=== PATIENT | male | born 1950 | race Caucasian/White ===

== ENCOUNTER 2018-12-09 02:22 | Inpatient (IN) | payer MEDICARE, MEDICAID ==
[2018-12-09] VITALS (8 sets, daily range): BP systolic 11–128; BP diastolic 72–92
[~2018-12-09] VITALS: Ht 172.7 cm; Wt 118.2 kg
[~2018-12-09 02:22] MED LIST: ASPI-1009 PO; CLOP75TA35 PO; FLO0.4C PO; FURO40TA4 PO; LISI-222 PO; NORCO10T PO; PRED20TA PO
[2018-12-09 03:31] LABS: BASOPHILS # (AUTO) 0.1 X10'3 (0-0.2); BASOPHILS % (AUTO) 0.4 % (0-1); EOSINOPHILS # (AUTO) 0.2 X10'3 (0-0.9); EOSINOPHILS % (AUTO) 1.4 % (0-6); HEMATOCRIT 28.4 % (42.0-52.0); HEMOGLOBIN 9.1 g/dl (14.0-17.9); LYMPHOCYTES # (AUTO) 0.8 X10'3 (1.1-4.8); LYMPHOCYTES % (AUTO) 5.8 % (21-51); MEAN CORPUSCULAR HEMOGLOBIN 26.3 PG (27.0-31.0); MEAN CORPUSCULAR HGB CONC 32.1 g/dL (33.0-36.5); MEAN CORPUSCULAR VOLUME 81.9 FL (78-98); MEAN PLATELET VOLUME 7.3 FL (7.4-10.4); MONOCYTES # (AUTO) 1.3 X10'3 (0-0.9); MONOCYTES % (AUTO) 9.9 % (2-12); NEUTROPHILS % (AUTO) 82.5 % (42-75); PLATELET COUNT 286 X10'3 (140-440); RED BLOOD COUNT 3.46 X10'6 (4.70-6.10); RED CELL DISTRIBUTION WIDTH 20.4 % (11.5-14.5); WHITE BLOOD COUNT 13.3 X10'3 (4.5-11.0)
[2018-12-09 03:52] LABS: ALANINE AMINOTRANSFERASE 28 U/L (12-78); ALBUMIN 2.9 G/DL (3.4-5.0); ALBUMIN/GLOBULIN RATIO 0.6 (1.1-1.5); ALKALINE PHOSPHATASE 89 IU/L (46-116); ANION GAP 9 (8-16); ASPARTATE AMINO TRANSFERASE 24 U/L (10-37); BILIRUBIN,TOTAL 0.6 MG/DL (0.1-1.0); BLOOD UREA NITROGEN 95 MG/DL (7-18); BUN/CREATININE RATIO 37.8 (5.4-32.0); CALCIUM 9.3 MG/DL (8.5-10.1); CHLORIDE 96 MMOL/L (99-107); CREATININE 2.51 MG/DL (0.60-1.10); GLUCOSE 132 MG/DL (70-104); POTASSIUM 3.7 MMOL/L (3.5-5.1); SODIUM 138 MMOL/L (135-145); TOTAL CARBON DIOXIDE 32.6 MMOL/L (24-32); TOTAL PROTEIN 7.6 G/DL (6.4-8.2); eGFR 26 ML/MIN
[2018-12-09] MEDS ORDERED: furosemide 10 MG/1 ML 10ml inj IV ONE (04:05)
[2018-12-09] MEDS ORDERED: ALLO100T PO (04:08)
[2018-12-09] MEDS ORDERED: LORA-269 PO (04:14)
[2018-12-09] MEDS ORDERED: CARV25TA PO (04:17)
[2018-12-09] MEDS ORDERED: ROFL500T7 PO (04:18)
[2018-12-09] MEDS ORDERED: DOXA1TAB2 PO (04:19)
[2018-12-09] MEDS ORDERED: FERR325T28 PO (04:20)
[2018-12-09] MEDS ORDERED: FURO-149 PO (04:22)
[2018-12-09] MEDS ORDERED: LOSA25TA96 PO (04:23)
[2018-12-09] MEDS ORDERED: NITR0.4T51 SL (04:26)
[2018-12-09] MEDS ORDERED: HYDR-4353 PO (04:28)
[2018-12-09] MEDS ORDERED: RIVA15TA PO (04:30)
[2018-12-09] MEDS ORDERED: SERT100T PO (04:31)
[2018-12-09] MEDS ORDERED: UMEC62.5 INH (04:37)
[2018-12-09] MEDS ORDERED: ALBU8.5H8 INH (04:40)
[2018-12-09 05:07] LABS: TOTAL CELLS COUNTED 100
[2018-12-09 05:08] LABS: ANISOCYTOSIS 3+; LARGE PLATELETS FEW; PLATELET ESTIMATE NORMAL
[2018-12-09 05:10] LABS: ELLIPTOCYTES FEW; POLYCHROMASIA FEW; TEAR DROP CELLS FEW
[2018-12-09] MEDS ORDERED: LORazepam 0.5 MG tablet PO PRN (05:10)
--- NOTE | 2018-12-09 05:56 | NUR ---
PT PRESENTS W/ SUICIDAL IDEATION, BUT BECAUSE OF CONCURRENT CHF EXACERBATION, PT WILL REMAIN ON CARDIAC, AND O2 MONITOR.
[2018-12-09 06:00] LABS: CLARITY,URINE CLEAR (Clear); COLOR,URINE YELLOW (Yellow); GLUCOSE, URINE NEGATIVE (Neg); KETONES,URINE NEGATIVE (Neg); LEUKOCYTE ESTERASE ,URINE NEGATIVE (Neg); NITRITES, URINE NEGATIVE (Neg); OCCULT BLOOD,URINE NEGATIVE (Neg); PH,URINE 5.5 (4.8-8.0); PROTEIN,URINE NEGATIVE (Neg); UROBILINOGEN,URINE 0.2 E.U/dL (0.2-1.0)
[2018-12-09 06:02] LABS: UA COLLECTION TYPE NON-SPECIFIED
--- NOTE | 2018-12-09 06:30 | NUR ---
Care assumed, pt currently sitting on edge of recliner tripoding.
--- NOTE | 2018-12-09 06:50 | NUR ---
Pt placed on library monitor and found with heart rate in 130s-150s. Dr. Hays informed of pt condition. Pt EKG being performed. Received report that pt was on 1798, no noted order of 1798 found. Spoke with pt regarding SI, pt reports not being able to sleep for x2 days, shortness fo breath, and SI due to symptoms. Pt denies active suicidal plan.
[2018-12-09] MEDS ORDERED: diltiazem-D5W 125mg/125ml 125 ML IV ONE (06:56)
[2018-12-09] MEDS ORDERED: diltiazem 5mg/ml 5ml inj. IV ONE (07:00)
--- NOTE | 2018-12-09 07:20 | NUR ---
Pt received cardizem bolus, cardizem gtt is running. SBP improved from 100 SBP to 113 SBP. Will continue to monitor.
[2018-12-09] MEDS ORDERED: amiodarone 150mg/dext, iso-os 100 ML IV ONE (08:15)
[2018-12-09] MEDS ORDERED: acetaminophen 325mg tablet PO PRN (08:25)
[2018-12-09] MEDS ORDERED: mag hydrox/Alum hydrox/simeth 30ml oral suspension PO PRN (08:25)
[2018-12-09] MEDS ORDERED: bisacodyl 10mg suppository rectal RC PRN (08:25)
[2018-12-09] MEDS: amiodarone/D5 360MG/200ML BAG 200 ML IV SCH ×2 (08:43→13:37)
[2018-12-09] MEDS ORDERED: morphine 4 MG/ML inj SYRINge IV ONE (08:55)
--- NOTE | 2018-12-09 09:08 | NUR ---
PAGED DANIELA:GOOD MORNING, HAVE NEW ADM COMING TO [id number]. MALACHI [phone], TY.
--- NOTE | 2018-12-09 09:11 | NUR ---
Amio gtt infusing at 33mL/hr. Pt. SOB w/ sp02 97%, HR 127, bp 106/68, rr 34. Pt anxious but cooperative, aox4. Morphine given. Assumed care from DANIEL Tovar.
[2018-12-09] MEDS: metoprolol tartrate 1mg/ml inj IV SCH ×2 (09:37→17:20)
--- NOTE | 2018-12-09 09:55 | NUR ---
RECEIVED TELEPHONE REPORT FROM DANIEL HAM.
--- NOTE | 2018-12-09 10:15 | NUR ---
RECEIVED PT VIA [employer]. VS STABLE. SOB WITH ANY ACTIVITY. SLIGHT SOB AT REST.
--- NOTE | 2018-12-09 11:34 | NUR ---
PAGER ID: [phone] MESSAGE: DR. NEWTON, 8396Y/ITALIA, C/O PAIN 5/10 EVERYWHERE, LEFT SHOULDER, BACK, ABD, RIBS FROM COUGHING.. NOTHING IS ORDERED FOR PAIN. MALACHI [id number]. TY
[2018-12-09] MEDS: ondansetron/PF 4mg/2ml inj IV PRN (13:23)
--- NOTE | 2018-12-09 13:56 | NUR ---
PAGER ID: [phone] MESSAGE: DR. NEWTON, 8651Z/ITALIA,STILL C/O PAIN 5/10 EVERYWHERE, LEFT SHOULDER, BACK, ABD, RIBS FROM COUGHING.. NOTHING IS ORDERED FOR PAIN. MALACHI [id number]. TY
[2018-12-09] MEDS ORDERED: nitroGLYCERIN 0.4mg SUBLingual tab SL PRN (14:30)
[2018-12-09] MEDS ORDERED: ALBUTEROL SULFATE 90 MCG INH SCH (14:30)
[2018-12-09] MEDS ORDERED: albuterol 2.5 MG/3 ML nebule NEB PRN (14:35)
--- NOTE | 2018-12-09 15:34 | NUR ---
PAGED RT: [phone],NEED PRN RESP TREATMENT PLEASE FOR INCREASE SOB.MALACHI [phone]. TY
[2018-12-09] MEDS: HYDROcodone/acetaminophen 10/325mg tab PO PRN ×2 (15:45→22:54)
--- NOTE | 2018-12-09 15:49 | NUR ---
PAGED RT:[id number],NEED PRN RESP TREATMENT PLEASE FOR INCREASE SOB.MALACHI [phone]. TY
--- NOTE | 2018-12-09 16:07 | NUR ---
PAGED RT:NEW RESP ORDERS PER DR. NEWTON. MALACHI [phone].
--- NOTE | 2018-12-09 16:12 | NUR ---
PAGED DANIELA:ESTHER RING,STILL GOING TO DANIELA [phone]? MALACHI [phone]. TY
[2018-12-09] MEDS ORDERED: FLUT1AER (17:16)
[2018-12-09] MEDS ORDERED: APRE30TA2 PO (17:16)
[2018-12-09] MEDS ORDERED: ACIT25CA2 PO (17:16)
[2018-12-09] MEDS ORDERED: POTA10TA36 PO (17:16)
--- NOTE | 2018-12-09 18:10 | NUR ---
Student documentation: I have reviewed and agree with all interventions, assessments performed and documented by RICHELLE.
--- NOTE | 2018-12-09 18:30 | NUR ---
Patient in room PCU 3023. I have received report from Jordi SANCHEZ and had the opportunity to ask questions and assume patient care.
--- NOTE | 2018-12-09 18:40 | NUR ---
Problems reprioritized. Patient report given, questions answered & plan of care reviewed with DANIEL BEJARANO.
[2018-12-09] MEDS ORDERED: non-formulary drug (Carvedilol (Coreg) 1 TAB) PO SCH (20:00)
[2018-12-09] MEDS: docusate sod 100mg capsule PO SCH (20:00)
[2018-12-09] MEDS: ipratropium/albuterol 3ml nebule NEB SCH ×2 (20:05→23:39)
[2018-12-09] MEDS: LORazepam 0.5 MG tablet PO SCH (20:39)
[2018-12-09] MEDS: furosemide 40mg/4ml inj IV SCH (20:39)
[2018-12-09] MEDS: ferrous sulfate 325mg tablet PO SCH (20:40)
[2018-12-09] MEDS: carVEDilol 12.5mg tablet PO SCH (20:40)
[2018-12-09] MEDS: Melatonin 3mg tablet PO SCH (20:41)
[2018-12-10] VITALS (12 sets, daily range): BP systolic 110–130; BP diastolic 74–104
[2018-12-10] MEDS: amiodarone/D5 360MG/200ML BAG 200 ML IV SCH ×4 (00:22→14:34)
--- NOTE | 2018-12-10 03:21 | NUR ---
pt stated that he lives alone in a hotel although he came here from [facility]. He said the hotel is closing in 30 days and he has no one to help get his things if he is still in hospital/rehab
[2018-12-10] MEDS: ipratropium/albuterol 3ml nebule NEB SCH ×6 (03:40→23:54)
[2018-12-10 05:11] LABS: BASOPHILS # (AUTO) 0.1 X10'3 (0-0.2); BASOPHILS % (AUTO) 0.7 % (0-1); EOSINOPHILS # (AUTO) 0.2 X10'3 (0-0.9); EOSINOPHILS % (AUTO) 1.4 % (0-6); HEMATOCRIT 27.5 % (42.0-52.0); HEMOGLOBIN 8.8 g/dl (14.0-17.9); LYMPHOCYTES % (AUTO) 8.3 % (21-51); MEAN CORPUSCULAR HEMOGLOBIN 26.7 PG (27.0-31.0); MEAN CORPUSCULAR HGB CONC 32.1 g/dL (33.0-36.5); MEAN CORPUSCULAR VOLUME 83.2 FL (78-98); MEAN PLATELET VOLUME 7.1 FL (7.4-10.4); MONOCYTES % (AUTO) 8.2 % (2-12); NEUTROPHILS # (AUTO) 9.5 X10'3 (1.8-7.7); NEUTROPHILS % (AUTO) 81.4 % (42-75); PLATELET COUNT 281 X10'3 (140-440); RED BLOOD COUNT 3.31 X10'6 (4.70-6.10); RED CELL DISTRIBUTION WIDTH 20.2 % (11.5-14.5); WHITE BLOOD COUNT 11.7 X10'3 (4.5-11.0)
[2018-12-10 05:14] LABS: ALBUMIN 2.8 G/DL (3.4-5.0); ANION GAP 8 (8-16); BLOOD UREA NITROGEN 99 MG/DL (7-18); CHLORIDE 95 MMOL/L (99-107); GLUCOSE 121 MG/DL (70-104); POTASSIUM 3.8 MMOL/L (3.5-5.1); SODIUM 137 MMOL/L (135-145); TOTAL CARBON DIOXIDE 33.7 MMOL/L (24-32); eGFR 21 ML/MIN
--- NOTE | 2018-12-10 06:28 | NUR ---
Problems reprioritized. Patient report given, questions answered & plan of care reviewed with Jordi RN.
--- NOTE | 2018-12-10 06:52 | NUR ---
Patient in room PCU 3023. I have received report from DANIEL BEJARANO and had the opportunity to ask questions and assume patient care.
[2018-12-10 07:00] LABS: ANISOCYTOSIS 3+; PLATELET ESTIMATE NORMAL; POLYCHROMASIA 1+; TOTAL CELLS COUNTED 100
[2018-12-10] MEDS ORDERED: ROFLUMILAST 250 MCG PO SCH (08:00)
[2018-12-10] MEDS ORDERED: non-formulary drug (Sertraline Hcl (Zoloft) 1 TAB) PO SCH (08:00)
[2018-12-10] MEDS ORDERED: non-formulary drug (Doxazosin Mesylate 1 TAB) PO SCH (08:00)
[2018-12-10] MEDS: furosemide 40mg/4ml inj IV SCH ×2 (08:06→19:38)
[2018-12-10] MEDS: doxazosin mesylate 2mg tablet PO SCH (08:07)
[2018-12-10] MEDS: LORazepam 0.5 MG tablet PO SCH ×2 (08:07→19:39)
[2018-12-10] MEDS: carVEDilol 12.5mg tablet PO SCH ×2 (08:08→19:40)
[2018-12-10] MEDS: roflumilast 500mcg tablet PO SCH (08:08)
[2018-12-10] MEDS: docusate sod 100mg capsule PO SCH ×2 (08:08→19:39)
[2018-12-10] MEDS: rivaroxaban 15mg tablet PO SCH (08:09)
[2018-12-10] MEDS: ferrous sulfate 325mg tablet PO SCH ×2 (08:09→19:39)
[2018-12-10] MEDS: allopurinol 100mg tablet PO SCH (08:10)
[2018-12-10] MEDS: sertraline 50mg tablet PO SCH (08:10)
--- NOTE | 2018-12-10 08:55 | NUR ---
C/O "SEVERE ANXIETY"SOB, HR 160. SAT 97% ON 2L/NC. RR28. BP 129/93. THEN HR DOWN TO 130. VARIABLE. DR. NEWTON NOTIFIED OF ANXIETY, SOB, RAPID HR. NORCO ADM FOR C/O 03/05 PAIN.
[2018-12-10] MEDS: HYDROcodone/acetaminophen 10/325mg tab PO PRN ×2 (09:09→20:40)
--- NOTE | 2018-12-10 09:15 | NUR ---
5 BEAT RUN VT. ASX. VS STABLE. DR. NEWTON NOTIFIED.
--- NOTE | 2018-12-10 16:13 | NUR ---
CALL TO ROBINSON SAAVEDRA. STATES "AMIODARONE GTT AND CEFEPIME ARE COMPATIBLE AT THE Y SITE".
[2018-12-10] MEDS: cefepime 1GM/NS ADD-VANTAGE 100 ML IV SCH ×2 (16:44→23:32)
[2018-12-10 17:51] LABS: CLARITY,URINE CLEAR (Clear); COLOR,URINE YELLOW (Yellow); GLUCOSE, URINE NEGATIVE (Neg); KETONES,URINE NEGATIVE (Neg); LEUKOCYTE ESTERASE ,URINE NEGATIVE (Neg); NITRITES, URINE NEGATIVE (Neg); OCCULT BLOOD,URINE NEGATIVE (Neg); PROTEIN,URINE NEGATIVE (Neg); UROBILINOGEN,URINE 0.2 E.U/dL (0.2-1.0)
[2018-12-10 17:53] LABS: TOTAL PROTEIN,URINE RANDOM 15.6 MG/DL
[2018-12-10 17:55] LABS: UA COLLECTION TYPE VOIDED
--- NOTE | 2018-12-10 18:16 | NUR ---
Problems reprioritized. Patient report given, questions answered & plan of care reviewed with abi mills.
[2018-12-10 18:19] LABS: UA EOSINOPHILS NO EOS /HPF
--- NOTE | 2018-12-10 18:30 | NUR ---
Patient in room PCU 3023. I have received report from orquidea alex and had the opportunity to ask questions and assume patient care.
[2018-12-10] MEDS: Melatonin 3mg tablet PO SCH (19:39)
--- NOTE | 2018-12-10 21:15 | NUR ---
pt has been complaining of intermittent shakiness. asked him to let RN know the next time it happened so RN could check his blood glucose. just before bed bath, he complained of shaking again. blood glucose 145. bed bath given, linens changed, dressing on right buttock. he complains of pain but there is nothing open. shampoo cap done. pt thankful and appreciative. slight redness in fold under breasts and pannus. interdry applied.
[2018-12-11] VITALS (11 sets, daily range): BP systolic 81–141; BP diastolic 63–127
[2018-12-11] MEDS: amiodarone/D5 360MG/200ML BAG 200 ML IV SCH ×4 (00:57→08:46)
[2018-12-11] MEDS: ondansetron/PF 4mg/2ml inj IV PRN (03:30)
--- NOTE | 2018-12-11 03:39 | NUR ---
pt woke with sudden abdominal pain and nausea. zofran given. had some dry heaves/coughing and spit up once but it was phlegm not vomit. rubbed pts back for a while until he said he would be alright.
[2018-12-11] MEDS: ipratropium/albuterol 3ml nebule NEB SCH ×6 (03:44→23:40)
[2018-12-11 05:51] LABS: BASOPHILS # (AUTO) 0.1 X10'3 (0-0.2); BASOPHILS % (AUTO) 0.5 % (0-1); EOSINOPHILS # (AUTO) 0.2 X10'3 (0-0.9); EOSINOPHILS % (AUTO) 1.9 % (0-6); HEMATOCRIT 27.3 % (42.0-52.0); HEMOGLOBIN 8.9 g/dl (14.0-17.9); LYMPHOCYTES # (AUTO) 0.9 X10'3 (1.1-4.8); LYMPHOCYTES % (AUTO) 7.5 % (21-51); MEAN CORPUSCULAR HEMOGLOBIN 26.8 PG (27.0-31.0); MEAN CORPUSCULAR HGB CONC 32.7 g/dL (33.0-36.5); MEAN PLATELET VOLUME 7.3 FL (7.4-10.4); MONOCYTES # (AUTO) 0.9 X10'3 (0-0.9); MONOCYTES % (AUTO) 7.5 % (2-12); NEUTROPHILS # (AUTO) 9.7 X10'3 (1.8-7.7); NEUTROPHILS % (AUTO) 82.6 % (42-75); PLATELET COUNT 270 X10'3 (140-440); RED BLOOD COUNT 3.33 X10'6 (4.70-6.10); WHITE BLOOD COUNT 11.7 X10'3 (4.5-11.0)
[2018-12-11 06:21] LABS: ALBUMIN 2.9 G/DL (3.4-5.0); ANION GAP 13 (8-16); BLOOD UREA NITROGEN 94 MG/DL (7-18); BUN/CREATININE RATIO 30.8 (5.4-32.0); CALCIUM 9.5 MG/DL (8.5-10.1); CHLORIDE 94 MMOL/L (99-107); CREATININE 3.05 MG/DL (0.60-1.10); GLUCOSE 136 MG/DL (70-104); POTASSIUM 3.7 MMOL/L (3.5-5.1); SODIUM 136 MMOL/L (135-145); TOTAL CARBON DIOXIDE 29.2 MMOL/L (24-32); eGFR 21 ML/MIN
--- NOTE | 2018-12-11 06:32 | NUR ---
Problems reprioritized. Patient report given, questions answered & plan of care reviewed with Lavonne SANCHEZ.
--- NOTE | 2018-12-11 06:47 | NUR ---
Patient in room PCU 3023. I have received report from DANIEL Ruiz and had the opportunity to ask questions and assume patient care.
[2018-12-11 07:11] LABS: ANISOCYTOSIS 3+; LARGE PLATELETS FEW; MICROCYTOSIS 1+; PLATELET ESTIMATE NORMAL
[2018-12-11 07:12] LABS: POLYCHROMASIA FEW
[2018-12-11] MEDS: roflumilast 500mcg tablet PO SCH (08:13)
[2018-12-11] MEDS: furosemide 40mg/4ml inj IV SCH ×2 (08:14→19:37)
[2018-12-11] MEDS: cefepime 1GM/NS ADD-VANTAGE 100 ML IV SCH (08:14)
[2018-12-11] MEDS: LORazepam 0.5 MG tablet PO SCH (08:15)
[2018-12-11] MEDS: rivaroxaban 15mg tablet PO SCH (08:15)
[2018-12-11] MEDS: allopurinol 100mg tablet PO SCH (08:15)
[2018-12-11] MEDS: ferrous sulfate 325mg tablet PO SCH ×2 (08:15→19:37)
[2018-12-11] MEDS: docusate sod 100mg capsule PO SCH ×2 (08:16→19:37)
[2018-12-11] MEDS: sertraline 50mg tablet PO SCH (08:16)
[2018-12-11] MEDS: carVEDilol 12.5mg tablet PO SCH ×2 (08:16→19:38)
[2018-12-11] MEDS: doxazosin mesylate 2mg tablet PO SCH (08:20)
[2018-12-11] MEDS: HYDROcodone/acetaminophen 10/325mg tab PO PRN (09:17)
--- NOTE | 2018-12-11 10:33 | NUR ---
Paged Dr. Jones re pt's anxiety. PAGER ID: [phone] MESSAGE: Re pt Juan Rabago in 6699Y. Can we get PRN Ativan? He's quite anxious. Also order for flutter valve? Thanks! Lavonne SANCHEZ [phone]
[2018-12-11] MEDS: LORazepam 2 mg/ml vial IV PRN (11:12)
[2018-12-11] MEDS ORDERED: ipratropium 0.5 MG/2.5ML nebule IH PRN (14:00)
[2018-12-11] MEDS ORDERED: temazepam 15mg capsule PO PRN (14:00)
[2018-12-11] MEDS: amiodarone 200mg tablet PO SCH ×2 (15:02→19:37)
[2018-12-11] MEDS: clonazePAM 0.5mg tablet PO SCH ×2 (15:02→19:37)
[2018-12-11] MEDS: levoFLOXACIN-Levaquin 750MG/D5 150 ML IV SCH (15:02)
--- NOTE | 2018-12-11 18:27 | NUR ---
Problems reprioritized. Patient report given, questions answered & plan of care reviewed with DANIEL Yun.
--- NOTE | 2018-12-11 18:30 | NUR ---
Patient in room PCU 3021. I have received report from Estelle SANCHEZ and had the opportunity to ask questions and assume patient care.
[2018-12-11] MEDS: lactobacillus rhamnosus 10,000 MMU CELLS/CAPSULE PO SCH (19:38)
[2018-12-11] MEDS: Melatonin 3mg tablet PO SCH (21:52)
[2018-12-12] VITALS (18 sets, daily range): BP systolic 89–141; BP diastolic 51–102
[2018-12-12] MEDS: ipratropium/albuterol 3ml nebule NEB SCH ×6 (03:47→23:14)
[2018-12-12] MEDS: LORazepam 2 mg/ml vial IV PRN (04:18)
[2018-12-12 05:36] LABS: ALBUMIN 2.8 G/DL (3.4-5.0); ANION GAP 7 (8-16); BLOOD UREA NITROGEN 94 MG/DL (7-18); BUN/CREATININE RATIO 29.9 (5.4-32.0); CALCIUM 8.9 MG/DL (8.5-10.1); CHLORIDE 94 MMOL/L (99-107); CREATININE 3.14 MG/DL (0.60-1.10); GLUCOSE 132 MG/DL (70-104); POTASSIUM 3.6 MMOL/L (3.5-5.1); SODIUM 133 MMOL/L (135-145); TOTAL CARBON DIOXIDE 31.6 MMOL/L (24-32); eGFR 20 ML/MIN
[2018-12-12 05:44] LABS: BASOPHILS % (AUTO) 0.4 % (0-1); EOSINOPHILS # (AUTO) 0.1 X10'3 (0-0.9); EOSINOPHILS % (AUTO) 1.1 % (0-6); HEMATOCRIT 26.7 % (42.0-52.0); HEMOGLOBIN 8.6 g/dl (14.0-17.9); LYMPHOCYTES # (AUTO) 0.9 X10'3 (1.1-4.8); LYMPHOCYTES % (AUTO) 7.2 % (21-51); MEAN CORPUSCULAR HEMOGLOBIN 26.7 PG (27.0-31.0); MEAN CORPUSCULAR HGB CONC 32.4 g/dL (33.0-36.5); MEAN CORPUSCULAR VOLUME 82.5 FL (78-98); MEAN PLATELET VOLUME 7.6 FL (7.4-10.4); MONOCYTES # (AUTO) 0.9 X10'3 (0-0.9); MONOCYTES % (AUTO) 7.1 % (2-12); NEUTROPHILS # (AUTO) 10.2 X10'3 (1.8-7.7); NEUTROPHILS % (AUTO) 84.2 % (42-75); PLATELET COUNT 260 X10'3 (140-440); RED BLOOD COUNT 3.24 X10'6 (4.70-6.10); RED CELL DISTRIBUTION WIDTH 20.9 % (11.5-14.5); WHITE BLOOD COUNT 12.1 X10'3 (4.5-11.0)
[2018-12-12 06:27] LABS: ANISOCYTOSIS 3+; HYPOCHROMASIA 1+; PLATELET ESTIMATE NORMAL
--- NOTE | 2018-12-12 06:34 | NUR ---
Problems reprioritized. Patient report given, questions answered & plan of care reviewed with Tyrel SANCHEZ.
--- NOTE | 2018-12-12 07:05 | NUR ---
Patient in room PCU 3021. I have received report from DANIEL Alston and had the opportunity to ask questions and assume patient care.
[2018-12-12] MEDS: carVEDilol 12.5mg tablet PO SCH ×2 (07:59→21:31)
[2018-12-12] MEDS: sertraline 50mg tablet PO SCH (07:59)
[2018-12-12] MEDS: amiodarone 200mg tablet PO SCH ×2 (07:59→21:26)
[2018-12-12] MEDS: doxazosin mesylate 2mg tablet PO SCH (08:00)
[2018-12-12] MEDS: lactobacillus rhamnosus 10,000 MMU CELLS/CAPSULE PO SCH ×2 (08:00→21:26)
[2018-12-12] MEDS: docusate sod 100mg capsule PO SCH ×2 (08:01→21:27)
[2018-12-12] MEDS: clonazePAM 0.5mg tablet PO SCH ×2 (08:01→21:26)
[2018-12-12] MEDS: rivaroxaban 15mg tablet PO SCH (08:01)
[2018-12-12] MEDS: allopurinol 100mg tablet PO SCH (08:02)
[2018-12-12] MEDS: ferrous sulfate 325mg tablet PO SCH ×2 (08:02→21:27)
[2018-12-12] MEDS: levoFLOXACIN-Levaquin 750MG/D5 150 ML IV SCH (08:06)
[2018-12-12] MEDS: furosemide 40mg/4ml inj IV SCH ×2 (08:18→21:29)
[2018-12-12] MEDS: ondansetron/PF 4mg/2ml inj IV PRN (11:45)
[2018-12-12] MEDS: DOBUTamine-DoBUTrex 500mg/D5W 250 ML IV SCH (11:54)
[2018-12-12] MEDS: roflumilast 500mcg tablet PO SCH (12:30)
--- NOTE | 2018-12-12 15:36 | NUR ---
on 1530 put 16fr reyes cath in, wit minimal resistance, clear yellow urine return, 100cc out at this time.
--- NOTE | 2018-12-12 18:10 | NUR ---
Patient in room PCU 3021. I have received report from Tyrel SANCHEZ and had the opportunity to ask questions and assume patient care.
--- NOTE | 2018-12-12 18:16 | NUR ---
Problems reprioritized. Patient report given, questions answered & plan of care reviewed with DANIEL praks.
[2018-12-12] MEDS: Melatonin 3mg tablet PO SCH (21:27)
--- NOTE | 2018-12-12 22:59 | NUR ---
PAGER ID: [phone] MESSAGE: [phone] Juan Rabago Patient is very anxious and crying, heart rate up to 120s. He has Ativan 0.5mg IV ordered, not effective. Can we increase dose please? Thanks, pt is also 118kg. [phone]
[2018-12-12] MEDS ORDERED: LORazepam 2 mg/ml vial IV PRN (23:20)
[2018-12-12] MEDS ORDERED: LORazepam 1 MG tablet PO PRN (23:20)
[2018-12-13] VITALS (12 sets, daily range): BP systolic 91–120; BP diastolic 45–107
[2018-12-13] MEDS: DOBUTamine-DoBUTrex 500mg/D5W 250 ML IV SCH ×2 (01:26→14:08)
[2018-12-13] MEDS: ipratropium/albuterol 3ml nebule NEB SCH ×6 (03:26→22:59)
--- NOTE | 2018-12-13 05:30 | NUR ---
Patient was sitting on side of bed, with staff member in room. Patient had urgency to void and impulsively tried to stand up, over estimating ability. Was assisted to floor. MD notified, VSS, minor skin tear to right knee. Patient moved to room 3016A with sitter
--- NOTE | 2018-12-13 05:57 | NUR ---
PAGER ID: [phone] MESSAGE: [phone] Juan Rabago Patient had witness fall, minor skin tear to knee. Vital signs stable. Court SANCHEZ
[2018-12-13 06:12] LABS: BASOPHILS % (AUTO) 0.3 % (0-1); EOSINOPHILS # (AUTO) 0.1 X10'3 (0-0.9); HEMATOCRIT 26.5 % (42.0-52.0); HEMOGLOBIN 8.5 g/dl (14.0-17.9); LYMPHOCYTES # (AUTO) 0.6 X10'3 (1.1-4.8); LYMPHOCYTES % (AUTO) 5.1 % (21-51); MEAN CORPUSCULAR HEMOGLOBIN 26.5 PG (27.0-31.0); MEAN CORPUSCULAR HGB CONC 32.3 g/dL (33.0-36.5); MEAN CORPUSCULAR VOLUME 82.1 FL (78-98); MEAN PLATELET VOLUME 7.5 FL (7.4-10.4); MONOCYTES # (AUTO) 0.8 X10'3 (0-0.9); MONOCYTES % (AUTO) 6.5 % (2-12); NEUTROPHILS # (AUTO) 11.1 X10'3 (1.8-7.7); NEUTROPHILS % (AUTO) 87.1 % (42-75); PLATELET COUNT 271 X10'3 (140-440); RED BLOOD COUNT 3.22 X10'6 (4.70-6.10); RED CELL DISTRIBUTION WIDTH 21.3 % (11.5-14.5); WHITE BLOOD COUNT 12.8 X10'3 (4.5-11.0)
--- NOTE | 2018-12-13 06:15 | NUR ---
Problems reprioritized. Patient report given, questions answered & plan of care reviewed with Tyrel SANCHEZ.
--- NOTE | 2018-12-13 06:20 | NUR ---
Patient in room PCU 3021. I have received report from DANIEL Alston and had the opportunity to ask questions and assume patient care.
[2018-12-13 06:27] LABS: ALBUMIN 2.8 G/DL (3.4-5.0); ANION GAP 8 (8-16); BLOOD UREA NITROGEN 91 MG/DL (7-18); CHLORIDE 96 MMOL/L (99-107); CREATININE 3.03 MG/DL (0.60-1.10); GLUCOSE 113 MG/DL (70-104); POTASSIUM 3.3 MMOL/L (3.5-5.1); SODIUM 137 MMOL/L (135-145); TOTAL CARBON DIOXIDE 32.9 MMOL/L (24-32); eGFR 21 ML/MIN
[2018-12-13 07:09] LABS: ANISOCYTOSIS 3+; ELLIPTOCYTES FEW; PLATELET ESTIMATE NORMAL; POLYCHROMASIA FEW; TARGET CELLS FEW; TEAR DROP CELLS FEW
[2018-12-13] MEDS ORDERED: clonazePAM 0.5mg tablet PO SCH (08:00)
[2018-12-13] MEDS: amiodarone 200mg tablet PO SCH ×2 (08:37→20:06)
[2018-12-13] MEDS: doxazosin mesylate 2mg tablet PO SCH (08:38)
[2018-12-13] MEDS: clonazePAM 0.5mg tablet PO SCH (08:38)
[2018-12-13] MEDS: ferrous sulfate 325mg tablet PO SCH ×2 (08:39→20:06)
[2018-12-13] MEDS: carVEDilol 12.5mg tablet PO SCH ×2 (08:39→20:06)
[2018-12-13] MEDS: sertraline 50mg tablet PO SCH (08:39)
[2018-12-13] MEDS: lactobacillus rhamnosus 10,000 MMU CELLS/CAPSULE PO SCH ×2 (08:39→20:06)
[2018-12-13] MEDS: rivaroxaban 15mg tablet PO SCH (08:40)
[2018-12-13] MEDS: docusate sod 100mg capsule PO SCH ×2 (08:40→20:06)
[2018-12-13] MEDS: allopurinol 100mg tablet PO SCH (08:41)
[2018-12-13] MEDS: furosemide 40mg/4ml inj IV SCH ×2 (08:41→20:09)
[2018-12-13] MEDS: roflumilast 500mcg tablet PO SCH (08:47)
[2018-12-13] MEDS ORDERED: potassium Cl 20 mEq SR tablet PO STA (10:38)
[2018-12-13] MEDS: HYDROcodone/acetaminophen 10/325mg tab PO PRN (16:59)
--- NOTE | 2018-12-13 18:22 | NUR ---
Problems reprioritized. Patient report given, questions answered & plan of care reviewed with DANIEL Mensah.
[2018-12-13] MEDS: Melatonin 3mg tablet PO SCH (20:08)
[2018-12-13] MEDS: ondansetron/PF 4mg/2ml inj IV PRN (21:39)
[2018-12-14] VITALS (9 sets, daily range): BP systolic 84–136; BP diastolic 58–75
[2018-12-14] MEDS: LORazepam 2 mg/ml vial IV PRN ×2 (00:09→07:43)
[2018-12-14] MEDS: HYDROcodone/acetaminophen 10/325mg tab PO PRN ×3 (02:41→23:58)
[2018-12-14] MEDS: ipratropium/albuterol 3ml nebule NEB SCH ×6 (03:00→22:45)
[2018-12-14] MEDS: DOBUTamine-DoBUTrex 500mg/D5W 250 ML IV SCH (05:06)
[2018-12-14 05:16] LABS: ALBUMIN 2.7 G/DL (3.4-5.0); ANION GAP 6 (8-16); BLOOD UREA NITROGEN 75 MG/DL (7-18); BUN/CREATININE RATIO 28.1 (5.4-32.0); CALCIUM 9.1 MG/DL (8.5-10.1); CHLORIDE 98 MMOL/L (99-107); CREATININE 2.67 MG/DL (0.60-1.10); GLUCOSE 116 MG/DL (70-104); POTASSIUM 3.2 MMOL/L (3.5-5.1); SODIUM 139 MMOL/L (135-145); TOTAL CARBON DIOXIDE 34.9 MMOL/L (24-32); eGFR 24 ML/MIN
[2018-12-14 05:18] LABS: BASOPHILS % (AUTO) 0.4 % (0-1); EOSINOPHILS # (AUTO) 0.1 X10'3 (0-0.9); EOSINOPHILS % (AUTO) 1.2 % (0-6); HEMATOCRIT 26.1 % (42.0-52.0); HEMOGLOBIN 8.4 g/dl (14.0-17.9); LYMPHOCYTES # (AUTO) 0.5 X10'3 (1.1-4.8); LYMPHOCYTES % (AUTO) 4.8 % (21-51); MEAN CORPUSCULAR HEMOGLOBIN 26.7 PG (27.0-31.0); MEAN CORPUSCULAR HGB CONC 32.3 g/dL (33.0-36.5); MEAN CORPUSCULAR VOLUME 82.6 FL (78-98); MEAN PLATELET VOLUME 7.2 FL (7.4-10.4); MONOCYTES # (AUTO) 0.9 X10'3 (0-0.9); NEUTROPHILS # (AUTO) 9.7 X10'3 (1.8-7.7); NEUTROPHILS % (AUTO) 85.6 % (42-75); PLATELET COUNT 259 X10'3 (140-440); RED BLOOD COUNT 3.15 X10'6 (4.70-6.10); RED CELL DISTRIBUTION WIDTH 20.9 % (11.5-14.5); WHITE BLOOD COUNT 11.4 X10'3 (4.5-11.0)
--- NOTE | 2018-12-14 06:24 | NUR ---
Patient in room PCU 3016. I have received report from Rodrick SANCHEZ and had the opportunity to ask questions and assume patient care.
[2018-12-14] MEDS: doxazosin mesylate 2mg tablet PO SCH (07:42)
[2018-12-14] MEDS: carVEDilol 12.5mg tablet PO SCH ×2 (07:42→20:00)
[2018-12-14] MEDS: sertraline 50mg tablet PO SCH (07:42)
[2018-12-14] MEDS: amiodarone 200mg tablet PO SCH ×2 (07:42→20:01)
[2018-12-14] MEDS: allopurinol 100mg tablet PO SCH (07:42)
[2018-12-14] MEDS: ferrous sulfate 325mg tablet PO SCH ×2 (07:43→20:00)
[2018-12-14] MEDS: roflumilast 500mcg tablet PO SCH (07:43)
[2018-12-14] MEDS: furosemide 40mg/4ml inj IV SCH ×3 (07:43→20:00)
[2018-12-14] MEDS: docusate sod 100mg capsule PO SCH ×2 (07:44→20:01)
[2018-12-14] MEDS: lactobacillus rhamnosus 10,000 MMU CELLS/CAPSULE PO SCH ×2 (07:44→20:00)
[2018-12-14] MEDS: rivaroxaban 15mg tablet PO SCH (07:44)
[2018-12-14] MEDS ORDERED: levoFLOXACIN-Levaquin 750MG/D5 150 ML IV SCH (08:00)
--- NOTE | 2018-12-14 10:34 | NUR ---
Problems reprioritized. Patient report given, questions answered & plan of care reviewed with Symone SANCHEZ.
[2018-12-14] MEDS ORDERED: potassium Cl 20 mEq SR tablet PO STA (10:36)
--- NOTE | 2018-12-14 10:40 | NUR ---
Assumed care of patient
[2018-12-14] MEDS ORDERED: benzonatate 100mg capsule PO PRN (11:05)
[2018-12-14] MEDS ORDERED: LORazepam 2 mg/ml vial IV PRN (11:25)
--- NOTE | 2018-12-14 12:25 | NUR ---
Paged RT regarding urgent [facility] lab draw
--- NOTE | 2018-12-14 12:31 | NUR ---
Called [facility] and left message regarding Dr Karen DAVIDSON planning order for tomorrow
[2018-12-14 12:50] LABS: ABG BASE EXCESS 9.8 mmol/L (-2.0-3.0); ABG HCO3 35.4 mmol/L (22.0-26.0); ABG OXYGEN SATURATION 93.3 % (95-98); ABG PCO2 (T) 53.9 mmHg (35.0-48.0); ABG PH (T) 7.435 (7.350-7.450); ABG PO2 (T) 68.9 mmHg (83-108); ALLEN'S TEST Positive; FCOHb 0.3 % (0.5-1.5); FLOW 1 L/min; FMetHb 0.3 % (0.3-1.12); FO2Hb 92.7 % (94-100); TOTAL HEMOGLOBIN 9.8 G/dl (14.0-18.0)
[2018-12-14 18:04] LABS: CLARITY,URINE CLEAR (Clear); COLOR,URINE YELLOW (Yellow); GLUCOSE, URINE NEGATIVE (Neg); KETONES,URINE NEGATIVE (Neg); LEUKOCYTE ESTERASE ,URINE NEGATIVE (Neg); NITRITES, URINE NEGATIVE (Neg); OCCULT BLOOD,URINE TRACE-LYSED (Neg); PH,URINE 5.5 (4.8-8.0); PROTEIN,URINE NEGATIVE (Neg); UROBILINOGEN,URINE 0.2 E.U/dL (0.2-1.0)
[2018-12-14 18:07] LABS: UA COLLECTION TYPE NON-SPECIFIED
[2018-12-14 18:13] LABS: BACTERIA,URINE FEW /HPF (Neg); RBC,URINE 0-2 /HPF (0-2); SQUAMOUS EPITHELIAL CELL,UR NONE SEEN /LPF (FEW)
[2018-12-14 18:14] LABS: WBC,URINE NONE SEEN /HPF (0-4)
--- NOTE | 2018-12-14 18:35 | NUR ---
Problems reprioritized. Patient report given, questions answered & plan of care reviewed with Elly RN, greeted at bedside. .
--- NOTE | 2018-12-14 18:48 | NUR ---
Patient in room PCU 3016. I have received report from Symone Sage RN and had the opportunity to ask questions and assume patient care. Pt currently in bed holding yanshelia. Uses it to help with his productive cough. Seems slightly teary eyed. Sitter at the bedside. Dobutamine running at 3mcg/kg (10ml/hr). No complaints at this time. Per report pt had a fall 12/13 from chair to ground.
[2018-12-14] MEDS: potassium Cl 20 mEq SR tablet PO SCH (20:00)
[2018-12-14] MEDS: Melatonin 3mg tablet PO SCH (20:42)
[2018-12-15 01:00] VITALS: BP 119/89
[2018-12-15] MEDS: DOBUTamine-DoBUTrex 500mg/D5W 250 ML IV SCH (01:08)
[2018-12-15] MEDS: ipratropium/albuterol 3ml nebule NEB SCH ×2 (02:55→07:41)
[2018-12-15 03:00] VITALS: BP_SYST 119; BP_SYST 145; BP_DIAS 71; BP_DIAS 89
--- NOTE | 2018-12-15 05:06 | NUR ---
2000: Removed pt's sitter. Has shown that he is better able to control impulsive behavior. Still seems anxious. He understands that he is a high fall risk, and that we will place a TABs alarm on him. Addendum: 12/15/18 at 0518 by Kate Arroyo RN Pt did well without sitter tonight. He still had episodes of mild anxiety addressed with calm approach and medication as needed. He did well using his call light to ask for assistance, especially when transferring from bed to recliner, or when he needed to stand to urinate.
[2018-12-15 05:38] LABS: ALBUMIN 2.7 G/DL (3.4-5.0); ANION GAP 3 (8-16); BLOOD UREA NITROGEN 68 MG/DL (7-18); BUN/CREATININE RATIO 26.7 (5.4-32.0); CALCIUM 8.8 MG/DL (8.5-10.1); CHLORIDE 100 MMOL/L (99-107); CREATININE 2.55 MG/DL (0.60-1.10); GLUCOSE 103 MG/DL (70-104); POTASSIUM 3.3 MMOL/L (3.5-5.1); SODIUM 138 MMOL/L (135-145); TOTAL CARBON DIOXIDE 35.3 MMOL/L (24-32); eGFR 25 ML/MIN
[2018-12-15 06:00] VITALS: BP 136/68
--- NOTE | 2018-12-15 06:36 | NUR ---
Problems reprioritized. Patient report given, questions answered & plan of care reviewed with Anthony SANCHEZ.
[2018-12-15] MEDS: roflumilast 500mcg tablet PO SCH (07:27)
[2018-12-15] MEDS: lactobacillus rhamnosus 10,000 MMU CELLS/CAPSULE PO SCH (07:28)
[2018-12-15] MEDS: doxazosin mesylate 2mg tablet PO SCH (07:28)
[2018-12-15] MEDS: carVEDilol 12.5mg tablet PO SCH (07:29)
[2018-12-15] MEDS: sertraline 50mg tablet PO SCH (07:29)
[2018-12-15] MEDS: rivaroxaban 15mg tablet PO SCH (07:29)
[2018-12-15] MEDS: ferrous sulfate 325mg tablet PO SCH (07:29)
[2018-12-15] MEDS: allopurinol 100mg tablet PO SCH (07:29)
[2018-12-15] MEDS: amiodarone 200mg tablet PO SCH (07:29)
[2018-12-15] MEDS: furosemide 40mg/4ml inj IV SCH (07:30)
[2018-12-15] MEDS: docusate sod 100mg capsule PO SCH (07:37)
[2018-12-15] MEDS ORDERED: potassium Cl 20 mEq SR tablet PO STA (07:43)
[2018-12-15] MEDS: potassium Cl 20 mEq SR tablet PO SCH (08:11)
--- NOTE | 2018-12-15 08:32 | NUR ---
Paged Dr. Jones. PAGER ID: [phone] MESSAGE: Anthony SANCHEZ [phone] [id number] Juan Rabago: Tammy has SNF placement available today. Transfer orders in need of MD signature. Will you please update Tammy when transfer orders signed and TMS completed? Thank you.
--- NOTE | 2018-12-15 10:53 | NUR ---
Problems reprioritized. Patient report given, questions answered & plan of care reviewed with Joy at [facility].
--- NOTE | 2018-12-15 11:39 | NUR ---
Patient discharged stable to [facility], PIV removed cannula intact, tele monitor removed, all belongings returned to patient, pt wheeled out via w/c by [facility] staff, pt transported by [facility]
== END 2018-12-15 11:42 | DRG 682 ==
LOC: ER 02:23 → PCU 3S 08:52 → CMPBEDREQ 19:44 → PCU 3S 12-11 23:37
PROVIDERS: ADMIT Family Medicine; ATTEND Internal Medicine
DX: N17.9 Acute kidney failure, unspecified (principal); J18.9 Pneumonia, unspecified organism; J96.01 Acute respiratory failure with hypoxia; I50.23 Acute on chronic systolic (congestive) heart failure; I13.0 Hypertensive heart and chronic kidney disease with heart failure and stage 1 through stage 4 chronic kidney disease, or unspecified chronic kidney disease; J44.1 Chronic obstructive pulmonary disease with (acute) exacerbation; J44.0 Chronic obstructive pulmonary disease with (acute) lower respiratory infection; R45.851 Suicidal ideations; N18.4 Chronic kidney disease, stage 4 (severe); L40.9 Psoriasis, unspecified; E66.01 Morbid (severe) obesity due to excess calories; I48.91 Unspecified atrial fibrillation; F32.9 Major depressive disorder, single episode, unspecified; F41.9 Anxiety disorder, unspecified; G47.00 Insomnia, unspecified; K59.00 Constipation, unspecified; Z79.899 Other long term (current) drug therapy; Z79.01 Long term (current) use of anticoagulants; Z68.39 Body mass index [BMI] 39.0-39.9, adult; W01.0XXA Fall on same level from slipping, tripping and stumbling without subsequent striking against object, initial encounter; Y93.89 Activity, other specified; Y92.238 Other place in hospital as the place of occurrence of the external cause; Y99.8 Other external cause status
CPT/HCPCS: 36415; 36600; 71045; 76775; 80048; 80053; 81001; 81003; 82570; 82803; 82948; 83605; 83880; 84156; 84300; 84443; 84484; 85018; 85025; 87040; 87070; 87207; 93005; 93306; 94640; 94667; 94760; 96365; 96375; 96376; 97116; 97162; 97530; 99291; G0378; J0282; J0692; J1250; J1940; J1956; J2060; J2270; J2405; J3490